=== PATIENT | female | born 1950 | race Hispanic/Latino ===

== ENCOUNTER 2024-06-11 16:38 | Inpatient (IN) | payer MEDICARE ==
[~2024-06-11] VITALS: Ht 152.4 cm; Wt 57.2 kg
[2024-06-11 17:11] VITALS: PULSE 77; RESP 15
[2024-06-11 18:01] LABS: BASOPHILS % 0.4 % (0.0-1.0); EOSINOPHILS # (AUTO) 0.2 (0.0-0.4); EOSINOPHILS % 2.4 % (0.0-6.0); HEMATOCRIT 24.9 % (34.2-44.1); HEMOGLOBIN 6.9 g/dL (12.0-16.0); LYMPHOCYTES # (AUTO) 1.6 (1.0-3.2); LYMPHOCYTES % 20.4 % (18.0-39.1); MEAN CORPUSCULAR HEMOGLOBIN 21.3 pg (28-32); MEAN CORPUSCULAR HGB CONC 27.7 g/dL (31-35); MEAN CORPUSCULAR VOLUME 76.9 fL (81-99); MONOCYTES # (AUTO) 0.5 (0.2-0.8); MONOCYTES % 6.6 % (4.4-11.3); NEUTROPHILS # (AUTO) 5.5 (2.1-6.9); NEUTROPHILS % 69.8 % (38.7-80.0); PLATELET COUNT 357 x10e3/uL (140-360); RED BLOOD COUNT 3.24 x10e6/uL (3.6-5.1); RED CELL DISTRIBUTION WIDTH 16.9 % (11.7-14.4); WHITE BLOOD COUNT 7.83 x10e3/uL (4.8-10.8)
[2024-06-11 18:13] LABS: INR 1.06; PROTHROMBIN TIME 14.4 seconds (11.9-14.5)
[2024-06-11 18:14] LABS: PARTIAL THROMBOPLASTIN TIME 28.8 seconds (23.8-35.5)
[2024-06-11 18:19] LABS: ALBUMIN/GLOBULIN RATIO 1.3 (0.8-2.0); ANION GAP 20.6 mmol/L (8-16); BILIRUBIN,TOTAL 0.4 mg/dL (0.2-1.2); CALCIUM 10.1 mg/dL (8.4-10.2); CREATININE, SERUM 0.71 mg/dL (0.57-1.11); POTASSIUM 4.6 mmol/L (3.5-5.1)
[2024-06-11 20:00] VITALS: BP 127/61; PULSE 80; RESP 18; TEMP 99.1; O2SAT 98
[2024-06-11 21:00] VITALS: BP 127/61; PULSE 80; RESP 18; TEMP 99.1; O2SAT 98
[2024-06-11 21:35] VITALS: PULSE 81; RESP 16; O2SAT 96
[2024-06-11 22:00] VITALS: BP 127/61; PULSE 81; RESP 16; TEMP 99.1; O2SAT 96
[2024-06-12] VITALS (11 sets, daily range): BP systolic 107–134; BP diastolic 62–80; PULSE 73–85; RESP 16–20; TEMP 96.5–98.5; O2SAT 96–100
[2024-06-12] MEDS ORDERED: PROTONIX20 MG IV (04:41)
[2024-06-12] MEDS ORDERED: JARDIANCE10 MG PO (04:41)
[2024-06-12] MEDS ORDERED: METFORMIN HCL500 MG PO (04:41)
[2024-06-12] MEDS ORDERED: METOPROLOL SUCC50 MG PO (04:41)
[2024-06-12] MEDS ORDERED: AMIODARONE HCL200 MG PO (04:41)
[2024-06-12] MEDS ORDERED: FAMOTIDINE20 MG PO (04:41)
[2024-06-12] MEDS ORDERED: SIMVASTATIN20 MG PO (04:41)
[2024-06-12] MEDS ORDERED: ELIQUIS5 MG PO (04:45)
[2024-06-12] MEDS ORDERED: DEXTROSE 50% SYRINGE 50 ML IV PRN (05:00)
[2024-06-12] MEDS ORDERED: SODIUM CHLORIDE 0.9% 250ML 250 ML ONE ×2 (06:12→10:39)
[2024-06-12] MEDS: INSULIN LISPRO 100 UNIT/1 ML 3ML VIAL SQ SCH (07:30)
[2024-06-12] MEDS: METFORMIN HCL 500 MG TAB PO SCH (08:43)
[2024-06-12] MEDS: AMIODARONE HCL 200 MG TAB PO SCH (08:44)
[2024-06-12] MEDS: FAMOTIDINE 20 MG TAB PO SCH (08:44)
[2024-06-12] MEDS: EMPAGLIFLOZIN 10 MG TABLET PO SCH (08:44)
[2024-06-12] MEDS: METOPROLOL SUCCINATE 50 MG TAB XL PO SCH (08:44)
[2024-06-12] MEDS: ACETAMINOPHEN 325 MG TAB PO PRN (10:46)
[2024-06-12] MEDS: SODIUM CHLORIDE 0.9% 250ML 250 ML IV ONE (10:47)
[2024-06-12 17:43] LABS: BASOPHILS % 0.3 % (0.0-1.0); EOSINOPHILS # (AUTO) 0.2 (0.0-0.4); EOSINOPHILS % 2.5 % (0.0-6.0); HEMATOCRIT 31.1 % (34.2-44.1); HEMOGLOBIN 9.3 g/dL (12.0-16.0); LYMPHOCYTES # (AUTO) 1.4 (1.0-3.2); LYMPHOCYTES % 21.5 % (18.0-39.1); MEAN CORPUSCULAR HEMOGLOBIN 23.6 pg (28-32); MEAN CORPUSCULAR HGB CONC 29.9 g/dL (31-35); MEAN CORPUSCULAR VOLUME 78.9 fL (81-99); MONOCYTES # (AUTO) 0.5 (0.2-0.8); MONOCYTES % 8.1 % (4.4-11.3); NEUTROPHILS # (AUTO) 4.3 (2.1-6.9); NEUTROPHILS % 67.4 % (38.7-80.0); PLATELET COUNT 272 x10e3/uL (140-360); RED BLOOD COUNT 3.94 x10e6/uL (3.6-5.1); RED CELL DISTRIBUTION WIDTH 18.3 % (11.7-14.4); WHITE BLOOD COUNT 6.43 x10e3/uL (4.8-10.8)
[2024-06-12 17:59] LABS: CALCIUM 9.4 mg/dL (8.4-10.2); CREATININE, SERUM 0.74 mg/dL (0.57-1.11)
[2024-06-12] MEDS: SIMVASTATIN 20 MG TAB PO SCH (20:36)
[2024-06-13] VITALS: BP 128/75; PULSE 70; RESP 18; TEMP 96.5; O2SAT 98
[2024-06-13 04:00] VITALS: BP 144/82; PULSE 82; RESP 18; TEMP 96.4; O2SAT 95
[2024-06-13 05:39] LABS: BASOPHILS % 0.5 % (0.0-1.0); EOSINOPHILS # (AUTO) 0.2 (0.0-0.4); EOSINOPHILS % 2.8 % (0.0-6.0); HEMATOCRIT 32.2 % (34.2-44.1); HEMOGLOBIN 9.5 g/dL (12.0-16.0); LYMPHOCYTES # (AUTO) 1.4 (1.0-3.2); LYMPHOCYTES % 21.8 % (18.0-39.1); MEAN CORPUSCULAR HEMOGLOBIN 23.3 pg (28-32); MEAN CORPUSCULAR HGB CONC 29.5 g/dL (31-35); MEAN CORPUSCULAR VOLUME 78.9 fL (81-99); MONOCYTES # (AUTO) 0.5 (0.2-0.8); MONOCYTES % 7.3 % (4.4-11.3); NEUTROPHILS # (AUTO) 4.2 (2.1-6.9); NEUTROPHILS % 67.4 % (38.7-80.0); PLATELET COUNT 263 x10e3/uL (140-360); RED BLOOD COUNT 4.08 x10e6/uL (3.6-5.1); RED CELL DISTRIBUTION WIDTH 18.5 % (11.7-14.4); WHITE BLOOD COUNT 6.18 x10e3/uL (4.8-10.8)
[2024-06-13 06:06] LABS: ANION GAP 15.7 mmol/L (8-16); CREATININE, SERUM 0.55 mg/dL (0.57-1.11); POTASSIUM 3.7 mmol/L (3.5-5.1)
[2024-06-13] MEDS ORDERED: LIDOCAINE HCL 2% LOCAL 20 ML VIAL ONE (06:56)
[2024-06-13] MEDS ORDERED: LIDOCAINE HCL 2% LOCAL INJ 5 ML SDV VIAL INJ ONE (06:56)
[2024-06-13] MEDS ORDERED: FENTANYL CITRATE/PF 100MCG/2 ML INJ ONE (06:56)
[2024-06-13] MEDS ORDERED: PROPOFOL IV EMULSION 10 MG/ML 20 ML VIAL ONE (06:56)
[2024-06-13 08:31] VITALS: BP 132/70; PULSE 72; RESP 18; TEMP 97.8; O2SAT 100
[2024-06-13 10:50] VITALS: BP 132/70; PULSE 72; RESP 18; TEMP 97.8; O2SAT 100
[2024-06-13 12:10] VITALS: BP 132/67; PULSE 78; RESP 18; TEMP 97.6; O2SAT 100
[2024-06-13] MEDS ORDERED: PANTOPRAZOLE SO40 MG PO (15:49)
[2024-06-13 16:03] VITALS: BP 115/69; PULSE 76; RESP 18; TEMP 97.4; O2SAT 98
[2024-08-19] MEDS ORDERED: EVISTA60 MG PO (08:18)
[2024-08-19] MEDS ORDERED: ASPIRIN EC81 MG PO (08:18)
== END 2024-06-13 17:30 | disposition home or self-care (01) | DRG 379 ==
LOC: ER 16:40 → OBSVTOIN 17:10 → ERHOLD 17:10 → MED/SURG2 18:20
PROVIDERS: ADMIT Internal Medicine; ATTEND Internal Medicine
PROC: 30233N1 Transfusion of Nonautologous Red Blood Cells into Peripheral Vein, Percutaneous Approach (ICD-10-PCS; principal; 2024-06-12)
PROC: 0DB38ZX Excision of Lower Esophagus, Via Natural or Artificial Opening Endoscopic, Diagnostic (ICD-10-PCS; 2024-06-13)
PROC: 0DB78ZX Excision of Stomach, Pylorus, Via Natural or Artificial Opening Endoscopic, Diagnostic (ICD-10-PCS; 2024-06-13)
DX: K29.51 Unspecified chronic gastritis with bleeding (principal); D64.9 Anemia, unspecified; T45.515A Adverse effect of anticoagulants, initial encounter; K21.9 Gastro-esophageal reflux disease without esophagitis; K44.9 Diaphragmatic hernia without obstruction or gangrene; I48.0 Paroxysmal atrial fibrillation; Z79.01 Long term (current) use of anticoagulants; I10 Essential (primary) hypertension; E11.9 Type 2 diabetes mellitus without complications; Z79.84 Long term (current) use of oral hypoglycemic drugs; E78.5 Hyperlipidemia, unspecified; Z79.899 Other long term (current) drug therapy; Y92.009 Unspecified place in unspecified non-institutional (private) residence as the place of occurrence of the external cause
CPT/HCPCS: 36415; 43239; 80048; 80053; 82948; 85025; 85610; 85730; 86850; 86870; 86880; 86900; 86905; 86920; 86922; 88305; 88342; 94799; 99001; 99284; J2003; J2470; J7050; P9016

== ENCOUNTER → 2024-08-21 | Day surgery (SDC) | payer MEDICARE ==
[2024-08-19 10:26] LABS: BASOPHILS % 0.2 % (0.0-1.0); EOSINOPHILS % 0.1 % (0.0-6.0); HEMATOCRIT 30.3 % (34.2-44.1); HEMOGLOBIN 9.2 g/dL (12.0-16.0); LYMPHOCYTES # (AUTO) 0.8 (1.0-3.2); LYMPHOCYTES % 6.1 % (18.0-39.1); MEAN CORPUSCULAR HGB CONC 30.4 g/dL (31-35); MEAN CORPUSCULAR VOLUME 72.5 fL (81-99); MONOCYTES # (AUTO) 0.7 (0.2-0.8); MONOCYTES % 5.6 % (4.4-11.3); NEUTROPHILS # (AUTO) 10.7 (2.1-6.9); NEUTROPHILS % 87.6 % (38.7-80.0); PLATELET COUNT 403 x10e3/uL (140-360); RED BLOOD COUNT 4.18 x10e6/uL (3.6-5.1); RED CELL DISTRIBUTION WIDTH 23.5 % (11.7-14.4); WHITE BLOOD COUNT 12.21 x10e3/uL (4.8-10.8)
[~2024-08-21] MED LIST: AMIODARONE HCL200 MG PO; ASPIRIN EC81 MG PO; ELIQUIS5 MG PO; EVISTA60 MG PO; FAMOTIDINE20 MG PO; JARDIANCE10 MG PO; LIDOCAINE HCL 2% LOCAL INJ 5 ML SDV VIAL INJ ONE; METFORMIN HCL500 MG PO; METOPROLOL SUCC50 MG PO; PANTOPRAZOLE SO40 MG PO; PROPOFOL IV EMULSION 10 MG/ML 20 ML VIAL ONE; PROTONIX20 MG IV; SIMVASTATIN20 MG PO
[2024-08-21] MEDS: LACTATED RINGER'S 1,000 ML ONE (07:40)
[2024-08-21 09:55] VITALS: TEMP 98.3
[2024-08-21 10:15] VITALS: BP 134/80; PULSE 72; RESP 18; O2SAT 99
== END | disposition home or self-care (01) ==
LOC: OR 06:29
PROVIDERS: ATTEND Internal Medicine Gastroenterology
DX: Z12.11 Encounter for screening for malignant neoplasm of colon (principal); K64.8 Other hemorrhoids; K44.9 Diaphragmatic hernia without obstruction or gangrene; K21.9 Gastro-esophageal reflux disease without esophagitis; D64.9 Anemia, unspecified; E11.9 Type 2 diabetes mellitus without complications; I10 Essential (primary) hypertension; E78.5 Hyperlipidemia, unspecified; I49.9 Cardiac arrhythmia, unspecified; M06.9 Rheumatoid arthritis, unspecified; M19.90 Unspecified osteoarthritis, unspecified site; Z78.9 Other specified health status; Z01.810 Encounter for preprocedural cardiovascular examination; Z01.812 Encounter for preprocedural laboratory examination; Z79.82 Long term (current) use of aspirin; Z79.84 Long term (current) use of oral hypoglycemic drugs; Z79.899 Other long term (current) drug therapy; Z68.24 Body mass index [BMI] 24.0-24.9, adult
CPT/HCPCS: 36415 ×2; 82948; 85025; 93005; G0121; J2003; J2704; J7121; 45378